=== PATIENT | female | born 1975 | race Caucasian/White ===

== ENCOUNTER 2020-07-08 16:12 | Emergency (ER) | payer BC, SELFPAY ==
[2020-07-08 16:18] VITALS: BP 134/83; PULSE 75; RESP 16; TEMP 36.1; O2SAT 100
--- NOTE | 2020-07-08 16:30 | ED.FEMALEGU ---
HPI - Female Genitourinary General Chief complaint: Urogenital-Female Stated complaint: POS UTI Time Seen by Provider: 07/08/20 16:31 Source: patient and RN notes reviewed History of Present Illness HPI Narrative: Patient is a 44-year-old female who presents the urgent care with complaints of 3-day history of dysuria, urinary frequency/urgency. Patient states that seem to have gotten worse throughout the day even though she woke up feeling better. Patient states that she is increase her water intake but is otherwise not taking anything [id number] for her symptoms. Denies of any fever, nausea, vomiting, abdominal pain, low back pain. States that the urine also has an odor. Denies of any vaginal discharge. States that she did recently have a UTI within this year and was on Macrobid at that time. No other acute complaints. No acute distress noted. Patient aware of the plan of care. Some parts of this dictation were generated by voice recognition software and may contain typographical and/or grammatical inaccuracies. Related Data Home Medications Medication Instructions Recorded Confirmed citalopram [Celexa] 20 mg PO DAILY 07/08/20 07/08/20 Allergies Allergy/AdvReac Type Severity Reaction Status Date / Time No Known Allergies Allergy Verified 07/08/20 16:22 Review of Systems Review of Systems: Narrative: CONSTITUTIONAL: Denies fever, chills, or sweats. EYES: Denies visual changes, redness, or discharge. ENT: Denies rhinorrhea, congestion, sore throat, or otalgia. CARDIOVASCULAR: Denies chest pain, palpitations, or edema. RESPIRATORY: Denies cough or dyspnea. GASTROINTESTINAL: Denies abdominal pain, nausea, vomiting, or diarrhea. GENITOURINARY: Reports of urinary frequency, urgency and dysuria SKIN: Denies rash or itching. MUSCULOSKELETAL: Denies back pain, joint pain, or myalgia. NEUROLOGIC: Denies headache, numbness, or weakness. All other systems reviewed are negative, except as documented in HPI. PMFSH Comments At the time of my signature, I reviewed and agree with the nursing past medical, surgical, social, and family history. There is no relevant family history pertinent to the patient complaint. Exam Narrative: Exam Narrative: GENERAL: This is a well-nourished, well-developed patient, in no apparent distress. HEAD: normocephalic, atraumatic. EYES: PERRL. Sclera clear/white. Vision is grossly intact. EARS: External ears normal NOSE: External nose normal with no obvious nasal discharge, nares without redness, no rhinorrhea. THROAT: Mucous membranes moist NECK: Neck supple CARDIOVASCULAR: Regular rate and rhythm without murmurs, gallops, or rubs. RESPIRATORY: Clear to auscultation. Breath sounds equal bilaterally. No wheezes, rales, or rhonchi. GASTROINTESTINAL: Abdomen soft, non-tender, nondistended. Bowel sounds are active. SKIN: warm, intact with no suspicious lesions or rash, good texture and turgor. NEURO: awake, alert, and oriented to person, place and time. There were no obvious focal neurologic abnormalities. EXTREMITIES: No clubbing, cyanosis, or edema. BACK: Negative bilateral CVA tenderness Course Vital Signs Vital signs: Vital Signs Temperature 97 F L 07/08/20 16:18 Pulse Rate 75 07/08/20 16:18 Respiratory Rate 16 07/08/20 16:18 Blood Pressure 134/83 07/08/20 16:18 Pulse Oximetry 100 07/08/20 16:18 Temperature 97 F L 07/08/20 16:18 Pulse Rate 75 07/08/20 16:18 Respiratory Rate 16 07/08/20 16:18 Blood Pressure 134/83 07/08/20 16:18 Pulse Oximetry 100 07/08/20 16:18 Reviewed MDM - Female Genitourinary MDM Narrative Medical decision making narrative: Reviewed lab results with patient. She is aware that urine analysis is indicative of a urinary tract infection with notable blood. Advised patient to complete oral antibiotic regimen as prescribed. Use Pyridium as needed for urinary spasm/frequency/urgency. Be sure to eat and drink with the medications
== END 2020-07-08 16:47 | disposition home or self-care (01) ==
PROVIDERS: Emergency Provider Nurse Practitioner Family
DX: N39.0 Urinary tract infection, site not specified (principal); F41.9 Anxiety disorder, unspecified
CPT/HCPCS: 81003; 87077; 87086; 87088; 87186; 99213; G0463

== ENCOUNTER 2021-06-08 09:54 | Emergency (ER) | payer BC, SELFPAY ==
[2021-06-08] VITALS (20 sets, daily range): BP systolic 114–152; BP diastolic 86–95; PULSE 94–100; RESP 16–17; TEMP 36.8–36.9; O2SAT 92–100
--- NOTE | ~2021-06-08 | US_ITS ---
EXAMINATION: US abdomen limited EXAM DATE: 06/08/2021 13:38 INDICATION: Upper abd pain, transaminitis upper abdominal pain. TECHNIQUE: Multiple grayscale and Doppler images of the abdomen right upper quadrant were obtained (b y a technologist who performed the scan) and subsequently reviewed. There is no prior study for mathew gerber. FINDINGS: The pancreatic head and body are normal in appearance. The pancreatic tail is not visualized. The l iver has normal echogenicity and contour. There are no focal liver lesions identified. There is no evidence of intrahepatic biliary duct dilation. Portal venous flow was seen in the hepatopedal, nor mal direction and has normal Doppler waveform. No right-sided hydronephrosis. Common bile duct measures 4 mm, which is normal. The gallbladder wall is normal in thickness, with ex pected amount of distention. No sonographic evidence of pericholecystic fluid. There is no cholelit hiases. Technologist performing exam reports patient did not demonstrate sonographic Shepard's sign. Please note that this sign is less reliable in patients who have received pain medication. IMPRESSION: Unremarkable abdominal ultrasound exam. Reviewed, dictated and finalized at location B.
--- NOTE | ~2021-06-08 | XR_ITS ---
EXAMINATION: XR toe 3rd LT min 2V EXAM DATE: 06/08/2021 11:10 INDICATION: Recent fracture, pain, fever. TECHNIQUE: Left 3rd toe frontal, lateral and oblique projections obtained and reviewed. There is n o prior study for comparison. FINDINGS: There is an oblique left 3rd proximal phalangeal shaft fracture which is essentially nondi splaced. Fracture line extends toward the medial aspect of the phalangeal head, doesn't appear to inv olve the articular surface of the proximal interphalangeal joint. Fracture margin is indistinct consi stent with subacute age, evidence of routine healing. No erosive change to suggest osteomyelitis. IMPRESSION: Subacute left 3rd proximal phalangeal shaft fracture. Reviewed, dictated and finalized at location B.
--- NOTE | ~2021-06-08 | XR_ITS ---
EXAMINATION: XR chest 1V portable EXAM DATE: 06/08/2021 11:10 INDICATION: Fever, recent left 3rd fx pain . TECHNIQUE: Portable AP frontal chest x-ray was obtained. There is no prior study for comparison. FINDINGS: The lungs are clear. There are no pleural effusions. Cardiac silhouette is prominent but magnified on this AP technique. There is no pneumothorax suspected. The bones and soft tissues are unremarkable. IMPRESSION: No acute cardiopulmonary findings. Reviewed, dictated and finalized at location B.
--- NOTE | 2021-06-08 10:57 | ED.LOWEXIN ---
HPI - Extremity Injury (Lower) General Chief Complaint: Extremity Injury, Lower <FAIZAN Gordon Last Filed: 06/08/21 14:11> Stated Complaint: toe injury <FAIZAN Gordon Last Filed: 06/08/21 14:11> Time Seen by Provider: 06/08/21 10:33 <FAIZAN Gordon Last Filed: 06/08/21 14:11> Source: patient <FAIZAN Gordon Last Filed: 06/08/21 14:11> Mode of arrival: ambulatory <FAIZAN Gordon Last Filed: 06/08/21 14:11> Limitations: no limitations <FAIZAN Gordon Last Filed: 06/08/21 14:11> History of Present Illness HPI Narrative: This is a 45-year-old female that presents to the emergency department for fevers. Reports she had an injury to the left third toe a couple of days ago. She was seen at urgent care and diagnosed with a fracture. The next day she started to have intermittent fevers. Denies any other localizing symptoms. She did have a superficial laceration in the area of the fracture so was started on Bactrim. She has not had any fever today. No erythema or warmth of the toe. Denies sore throat, cough, abdominal pain, vomiting, or dysuria. <FAIZAN Gordon Last Filed: 06/08/21 14:11> Related Data Home Medications: Home Medications Medication Instructions Recorded Confirmed citalopram [Celexa] 20 mg PO DAILY 07/08/20 07/08/20 <FAIZAN Gordon Last Filed: 06/08/21 14:11> Allergies/Adverse Reactions: Allergies Allergy/AdvReac Type Severity Reaction Status Date / Time No Known Allergies Allergy Verified 06/08/21 10:09 <FAIZAN Gordon Last Filed: 06/08/21 14:11> Review of Systems Review of Systems: CONSTITUTIONAL: Reports fever ENT: Denies congestion, sore throat RESPIRATORY: Denies cough GASTROINTESTINAL: Denies abdominal pain, nausea, vomiting GENITOURINARY: Denies dysuria MUSCULOSKELETAL: Reports joint pain, and myalgia. <Bonnie Alonso PA-C - Last Filed: 06/08/21 14:11> All systems reviewed & are unremarkable except as noted in HPI and below <Bonnie Alonso PA-C - Last Filed: 06/08/21 14:11> PMFSH Past Medical History Medical History: Medical History (Updated 06/08/21 @ 14:10 by Bonnie Alonso PA-C) No active medical problems <Bonnie Alonso PA-C - Last Filed: 06/08/21 14:11> Social History Social History: Social History (Updated 06/08/21 @ 10:59 by Bonnie Alonso PA-C) Smoking status: Never smoker <Bonnie Alonso PA-C - Last Filed: 06/08/21 14:11> Exam Narrative: GENERAL: Well-appearing, well-nourished, and in no acute distress. HEAD: Normocephalic, atraumatic. EYES: EOMI. CHEST: Clear to auscultation. No respiratory distress. No wheezes rales or rhonchi HEART: Regular rate and rhythm. No murmur heard. Normal peripheral pulses. ABDOMEN: Soft, nontender, nondistended, normal active bowel sounds. EXTREMITIES: Normal range of motion. No edema, erythema or warmth. Left third toe with moderate bruising, tender to palpation. Normal DP pulses SKIN: Warm, dry, no rash. NEURO: No focal deficits. Alert and oriented x3. PSYCH: Normal mood and affect <Bonnie Alonso PA-C - Last Filed: 06/08/21 14:11> Course WINDOWS SERVER ADMINISTRATOR/PA Physician Supervision I did not see this patient nor was the care plan discussed with me. I was available for evaluation and consultation, I agree with the documentation as above <Bob Prado MD - Last Filed: 06/08/21 15:00> Vital Signs Vital signs: Vital Signs Pulse Oximetry 92 06/08/21 09:58 Temperature 36.8 C 06/08/21 14:32 Pulse Rate 94 06/08/21 14:32 Respiratory Rate 17 06/08/21 14:32 Blood Pressure 121/94 H 06/08/21 14:32 Pulse Oximetry 98 06/08/21 14:32 <Bonnie Alonso PA-C - Last Filed: 06/08/21 14:11> Vital Signs Pulse Oximetry 92 06/08/21 09:58 Temperature 36.8 C 06/08/21 14:32 Pulse Rate 94 06/08/21 14:32 Respiratory Rate 17 06/08/21 14:32
[2021-06-08 11:35] LABS: Basophils Percent Auto 0.8 % (0.2-1.2); Eosinophils Absolute Auto 0.1 K/mm3 (0-0.3); Eosinophils Percent Auto 1.5 % (0-4.4); Hematocrit 41.6 % (37.0-47.0); Hemoglobin 13.3 g/dL (12.0-15.0); Immature Granulocyte Absolute 0.02 K/mm3 (0.00-0.031); Immature Granulocyte Percent A 0.4 % (0-0.5); Lymphocytes Absolute Auto 0.78 K/mm3 (0.9-3.2); Lymphocytes Percent Auto 14.9 % (18.3-44.2); Mean Corpuscular Hemoglobin 27.5 pg (26-34); Mean Corpuscular Volume 86.1 fl (80-100); Mean Platelet Volume 9.5 fl (7.4-10.4); Monocytes Absolute Auto 0.5 K/mm3 (0.1-0.6); Monocytes Percent Auto 9.5 % (2.6-8.5); Neutrophils Absolute Auto 3.8 K/mm3 (1.3-6.7); Neutrophils Percent Auto 72.9 % (45.5-73.1); Platelet Count Result 199 k/mm3 (150-375); Red Blood Count 4.83 M/mm3 (4.2-5.4); Red Cell Distribution Width 13.7 % (11.5-14.5); White Blood Count 5.2 K/mm3 (4.5-10.0)
[2021-06-08 11:37] LABS: Add Urine Microscopic? NO; Appearance Urine Clear (Clear); Bilirubin Urine Negative (Negative); Blood Urine Negative (Negative); Color Urine Straw (Yellow); Glucose Urine UA Negative (Negative); Ketones Urine Negative (Negative); Leukocyte Esterase Ur Negative LEU/UL (Negative); Nitrate Urine Negative (Negative); Protein Urine Negative (Negative); Urobilinogen Urine Negative mg/dL (<2.0)
[2021-06-08 11:43] LABS: Specific Grav Ur 1.004 (1.001-1.035)
[2021-06-08 12:05] LABS: Alanine Aminotransferase 62 U/L (4-35); Albumin Level 4.7 g/dL (3.5-5.1); Alkaline Phosphatase 86 U/L (38-126); Anion Gap 9 mmol/L (8-16); Aspartate Amino Transferase 72 U/L (14-36); Bilirubin,Total 0.4 mg/dL (0.2-1.3); Blood Urea Nitrogen 7 mg/dL (7-17); CRP 5.4 mg/dL (<1.0); Calcium 9.3 mg/dL (8.4-10.2); Carbon Dioxide 28 mmol/L (22-30); Chloride 102 mmol/L (98-107); Estimated CRCL calculation 76 ml/min; Estimated Glomerular Filt Rate > 60; Glucose 115 mg/dL (65-110); Lipase 76 U/L (23-300); Potassium 4.5 mmol/L (3.4-5.0); Sodium 139 mmol/L (137-145)
[2021-06-08 13:00] LABS: Erythrocyte Sedimentation Rate 17 mm/hr (0-20)
== END 2021-06-08 14:35 | disposition home or self-care (01) ==
PROVIDERS: Physician Assistant; Emergency Provider Emergency Medicine
DX: R50.9 Fever, unspecified (principal); R74.01 Elevation of levels of liver transaminase levels; S92.512D Displaced fracture of proximal phalanx of left lesser toe(s), subsequent encounter for fracture with routine healing; X58.XXXD Exposure to other specified factors, subsequent encounter
CPT/HCPCS: 36415; 71045; 73660; 76705; 80053; 81003; 81025; 83690; 85025; 85652; 86140; 99284